=== PATIENT | female | born 1975 | race Two or more races ===

== ENCOUNTER 2024-09-21 17:43 | Emergency (ER) | payer MEDICAID, SELFPAY ==
[2024-09-21 18:07] VITALS: BP 119/63; PULSE 68; RESP 18; TEMP 37; O2SAT 98; BMI 31.6
[2024-09-21 18:37] LABS: Basophils % (Auto) 0 % (0-2.5); Eosinophils # (Auto) 0.1 Thou/mm3 (0.0-0.5); Eosinophils % (Auto) 1 % (0-10); Hematocrit 37.9 % (36.0-46.0); Hemoglobin 13.1 g/dL (12.0-16.0); Immature Granulocytes % (Auto) 1 % (0-0); Immature Granulocytes Auto 0.07 Thou/mm3 (0.00-0.00); Lymphocytes # (Auto) 2.7 Thou/mm3 (1.0-4.8); Lymphocytes % (Auto) 18 % (10-50); Mean Corpuscular HGB Conc 34.6 g/dl (31.0-37.0); Mean Corpuscular Hemoglobin 29.2 pg (25.0-35.0); Mean Corpuscular Volume 85 fL (80-100); Monocytes # (Auto) 0.8 Thou/mm3 (0.0-0.8); Monocytes % (Auto) 6 % (0-12); Neutrophils # (Auto) 11.5 Thou/mm3 (1.8-7.7); Neutrophils % (Auto) 75 % (37-80); Nucleated Red Blood Cell % 0 /100 WBC (0); Platelet Count 398 Thou/mm3 (140-440); RDW Standard Deviation 40.5 fL (36.4-46.3); Red Blood Count 4.48 Miln/mm3 (4.00-5.20); White Blood Count 15.2 Thou/mm3 (3.6-11.0)
--- NOTE | 2024-09-21 18:40 | PD.EDABDPN ---
ED Abdominal Pain RME/HPI General Chief Complaint: Abdominal Pain Stated complaint: EPIGASTRIC PAIN SINCE 1 HOUR AGO, r/o gastritis Time seen by provider: 09/21/24 18:18 Arrival date/time: 09/21/24 17:43 RME / HPI RME / HPI narrative: 48-year-old female presents to the emergency department with complaint of epigastric pain onset 1 hour ago. Patient reports history of gastritis. States that she is seeing a specialist for her gastritis. Patient denies any fever or chills. Denies lower abdominal pain. Related Data Allergies Allergy/AdvReac Type Severity Reaction Status Date / Time No Known Allergies Allergy Verified 09/21/24 17:45 Review of Systems Review of Systems Narrative Review of Systems: Review of systems negative except as outlined in the HPI. ED Exam Narrative Physical exam: Constitutional: no acute distress, age appropriate, non-toxic Eyes: PERRL, conjunctivae w/o pallor, EOMI HENT: normocephalic, atraumatic. Oral mucosa moist Respiratory Effort: no stridor, effort normal, no retractions Breath sounds: Clear bilaterally; No rales, No rhonchi, No wheezing Cardiovascular: regular rhythm, S1 and S2 normal, no murmur Abdominal: soft; non-distended. Epigastric tenderness. No right upper quadrant tenderness. Negative Pollard sign. Musculoskeletal: no deformities, no swelling, no LE edema Skin: warm, dry; No rash Neurology: alert, oriented X 4. Normal gait. Moves all extremities spontaneously. Psychology: cooperative, normal mood Course Quality Measures none Orders Category Date Time Status US abdomen limited Stat Exams 09/21/24 19:42 Completed CBC Stat Lab 09/21/24 18:27 Completed CMP [Comprehensive Metabolic Panel] Stat Lab 09/21/24 18:27 Completed Lipase Stat Lab 09/21/24 18:27 Completed Famotidine [Pepcid] Med 09/21/24 18:21 Discontinued 40 mg PO X1 ONE mg Hyd/Al Hyd/Joshua Susp [Maalox Susp] Med 09/21/24 18:21 Discontinued 30 ml PO X1 ONE Vital Signs Vital signs: Vital Signs Temperature 98.6 F 09/21/24 18:07 Pulse Rate 68 09/21/24 18:07 Respiratory Rate 18 09/21/24 18:07 Blood Pressure 119/63 09/21/24 18:07 Pulse Oximetry (%) 98 09/21/24 18:07 Oxygen Delivery Method Room Air 09/21/24 18:07 Abdominal Pain MDM MDM Narrative MDM Narrative:: Patient with history as above presented with epigastric abdominal pain. History obtained from patient. Patient was nontoxic, stable. Ambulatory. Exam as above. Differential diagnoses include gastritis, cholecystitis, choledocholithiasis, cholangitis, pancreatitis Labs reviewed. Unremarkable except for leukocytosis to 15K Independently interpreted imaging. Ultrasound shows gallstones, negative for cholecystitis. Patient's workup is reassuring overall. Suspect pain related to symptomatic cholelithiasis. Based on ultrasound and laboratory testing, low suspicion for cholecystitis, choledocholithiasis, cholangitis. Lipase minimally elevated but pain resolved after medications. Upon reassessment, patient reported to me that she is feeling much better. Patient counseled to avoid greasy, fried, fatty foods, and to follow-up with PCP in the next 1 to 2 days for referral to general surgery. Consideration was given for admission, but the patient was stable for outpatient management. Disposition: Discussed need to follow up diagnostics, including incidental findings. Discharged with instructions to obtain outpatient follow up of patient?s symptoms and findings, with strict return precautions if patient develops new or worsening symptoms. Patient data External records reviewed:: [facility] previous records Clinical information provided by:: patient Social determinants that could affect healthcare access:: none Patient has the following chronic illnesses:: Gastritis How is presenting disease/condition affected by chronic disease/condition?: caused by Evaluation data The following diagnostics were reviewed and interpreted by me:: lab results Lab and/or radiology exams considered but not ordered:: Considered CT abdomen pelvis, but not indicated Interpretation Summary: Examination: Abdomen sonogram, Limited Date and time of exam: September 21, 2024 194 hours: INDICATIONS: Right upper abdominal pain today Technique: Real-time armstrong scale transabdominal sonographic images of the upper abdomen obtained. Findings: Contracted gallbladder Gallstones Gallbladder wall 0.3 cm no edema Common bile duct 0.3 cm Pancreatic head 2.5 cm Liver 14.5 cm fatty infiltration no focal liver lesions Normal hepatobiliary port or venous flow Patent IVC IMPRESSION: Cholelithiasis, negative for cholecystitis Normal common bile duct. Fatty liver Medications / Prescriptions Medications or Prescriptions considered but not ordered:: N/A Medication administrations:: Medication Administration History Discontinued Medications Al Hydrox/Mg Hydrox/Simethicone (Mg Hyd/Al Hyd/Joshua (Maalox Reg) Susp 30 Ml Udc) 30 ml PO X1 ONE Stop: 09/21/24 18:22 Last Admin: 09/21/24 18:47 Dose: 30 ml Documented By: OA Famotidine (Famotidine 20 Mg Tablet) 40 mg PO X1 ONE Stop: 09/21/24 18:22 Last Admin: 09/21/24 18:46 Dose: 40 mg Documented By: PATSY See above Consultations Consultation(s) initiated? (list below): No Diagnosis Differential diagnosis abdominal pain: abdominal pain, pancreatitis and other (Gastroenteritis, cholecystitis) Most likely diagnosis given after review of the tests above:: Symptomatic cholelithiasis Admission Indicated Admission indicated?: not indicated Admission Request Was there a request for admission?: No Disposition Plan Disposition Plan: Discharge Discharge Attestation Discharge Attestation: The patient and all family members were given an opportunity to ask questions and understood the discharge instructions. Discharge instructions specifically effects, indications for sooner follow up or return to the emergency department, and the expected course of current diagnosis. Patient condition: Stable Discharge Plan Plan Patient Disposition: HOME (Self Care) Prescriptions/Referrals Referrals: Sebastian Coulter MD [Primary Care Provider] - In 1 week Problem List Clinical Impression: Symptomatic cholelithiasis Patient/Caregiver Discharge Instructions Education Materials: ED Gallstones with Biliary Colic Additional Instructions: Evite los alimentos grasosos, fritos o grasosos. Cody un seguimiento con cain PCP para derivarlo a cirug?a general. Regrese al servicio de urgencias en cualquier momento si los s?ntomas aparecen o empeoran. Avoid greasy, fried, or fatty foods. Follow-up with your PCP for referral to general surgery. Return to the ED at anytime for new or worsening symptoms. Print Language: Frisian Stand Alone Forms: Yvonne Award Info., Patient Portal Info Letter
[2024-09-21] MEDS: FAMOTIDINE 20 MG TABLET 40 MG PO (18:46)
[2024-09-21] MEDS: MG HYD/AL HYD/SIME (Maalox Reg) SUSP 30 ML UDC PO (18:47)
[2024-09-21 19:09] LABS: Alanine Aminotransferase 11 U/L (10-49); Albumin, Serum 4.7 gm/dL (3.5-5.0); Albumin/Globulin Ratio 1.4 (1.2-2.2); Alkaline Phosphatase 103 U/L (46-116); Anion Gap 10 (7-16); Aspartate Amino Transferase 20 U/L (0-34); BUN/Creatinine Ratio 16 Ratio (12-20); Bilirubin,Total 0.5 mg/dL (0.3-1.2); Blood Urea Nitrogen 18 mg/dL (9-23); Calcium 9.9 mg/dL (8.3-10.6); Calcium (Corrected) 9.9 mg/dL (8.5-10.1); Carbon Dioxide 23.2 mMol/L (20.0-31.0); Chloride 101 mMol/L (98-107); Creatinine (Component) 1.1 mg/dL (0.6-1.3); Globulin 3.3 gm/dL (2.3-3.5); Glucose 153 mg/dL (74-106); Lipase 115 U/L (12-53); Osmolality,Calculated 273 (275-295); Potassium 3.9 mMol/L (3.4-5.1); Sodium 134 mMol/L (136-145); eGFR > 60 See Note
--- NOTE | 2024-09-21 19:42 | XR_ITS ---
Examination: Abdomen sonogram, Limited Date and time of exam: September 21, 20241947 hours: INDICATIONS: Right upper abdominal pain today Technique: Real-time armstrong scale transabdominal sonographic images of the upper abdomen obtained. Findings: Contracted gallbladder Gallstones Gallbladder wall 0.3 cm no edema Common bile duct 0.3 cm Pancreatic head 2.5 cm Liver 14.5 cm fatty infiltration no focal liver lesions Normal hepatobiliary port or venous flow Patent IVC IMPRESSION: Cholelithiasis, negative for cholecystitis Normal common bile duct. Fatty liver
== END 2024-09-21 22:24 | disposition home or self-care (01) ==
PROVIDERS: Physician Assistant; Emergency Provider Emergency Medicine; PCP Family Medicine
DX: K80.20 Calculus of gallbladder without cholecystitis without obstruction (principal)
CPT/HCPCS: 36415; 76705; 80053; 83690; 85025; 99284; A9270